=== PATIENT | male | born 1990 | race Caucasian/White ===

== ENCOUNTER 2017-06-19 09:25 | Emergency (ER) | payer MEDICAID | END 2017-06-19 10:57 | disposition home or self-care (01) | LOC: D.ER 09:25 | DX: M25.472 Effusion, left ankle (principal); S93.402A Sprain of unspecified ligament of left ankle, initial encounter; X58.XXXA Exposure to other specified factors, initial encounter; Y93.89 Activity, other specified; Y92.89 Other specified places as the place of occurrence of the external cause ==